=== PATIENT | female | born 1985 | race Caucasian/White ===

== ENCOUNTER 2023-11-25 11:10 | Emergency (ER) | payer OTHER ==
[2023-11-25] MEDS: Benzonatate 100 MG Cap PO ONE (11:34)
[2023-11-25 12:04] LABS: CORONAVIRUS COVID-19 NAA NEGATIVE (NEGATIVE); INFLUENZA A NAA POSITIVE (NEGATIVE); INFLUENZA B NAA NEGATIVE (NEGATIVE); RESPIRATORY SYNCYTIAL VIR NAA NEGATIVE (NEGATIVE)
== END 2023-11-25 12:29 | disposition home or self-care (01) ==
LOC: DL.ED 11:10
DX: J10.1 Influenza due to other identified influenza virus with other respiratory manifestations (principal)
CPT/HCPCS: 0241U; 99283; A9270